=== PATIENT | male | born 1960 | race Caucasian/White ===

== ENCOUNTER 2017-04-02 17:06 | Emergency (ER) | payer BC ==
[2017-04-02 17:49] VITALS: BP 131/74
[2017-04-02] MEDS ORDERED: Lidocaine 1% with EPINEPHrine 1:100,000 50 ML MDV INFILT ONE (18:11)
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
[2017-04-02] MEDS ORDERED: Bacitracin Oint 1 GM U/D Packet TOP ONE (18:50)
== END 2017-04-02 18:58 | disposition home or self-care (01) ==
LOC: JP.ED 17:06
DX: S61.411A Laceration without foreign body of right hand, initial encounter (principal); I48.91 Unspecified atrial fibrillation; Z95.0 Presence of cardiac pacemaker; F17.210 Nicotine dependence, cigarettes, uncomplicated; Z79.01 Long term (current) use of anticoagulants; W26.8XXA Contact with other sharp object(s), not elsewhere classified, initial encounter
CPT/HCPCS: 12002; 99283-25